=== PATIENT | male | born 1965 | race Caucasian/White ===

== ENCOUNTER 2023-12-18 11:11 | Emergency (ER) | payer BC, SELFPAY ==
[2023-12-18 11:13] VITALS: BP 180/95
--- NOTE | 2023-12-18 11:42 | ED.GENMED ---
History of Present Illness
General
Chief Complaint: Male Genito-Urinary Symptoms
Time Seen by Provider: 12/18/23 11:33
History of Present Illness
History of Present Illness:
58-year-old male with history of diabetes presents to the emergency department for evaluation of right lower quadrant pain beginning overnight. He reports having dysuria and urinary urgency during that time as well. Went to urgent care today where
he reportedly had large amount of microscopic hematuria but no leukocytes, was sent home on ciprofloxacin however as pain worsened he then decided to come to the ER. Having increasing right lower quadrant pain. No fevers but does report chills.
Prior abdominal surgical history includes bariatric surgery
Past History
Past History
ED Past Medical History: Other
ED Past Surgical History: Tonsilectomy, Urological and Other
Social History
Tobacco: Former smoker
Alcohol: Occasional
Personal:
Employment: Employed
Review of Systems
Review of Systems
Allergies reviewed?: Yes
All Other Systems: ROS reviewed and negative except as documented in HPI and ROS
Phy Exam
Physical Exam
Physical Exam:
GEN: Well appearing, NAD, WDWN
Eyes: PERRLA, EOMs intact, no scleral icterus
HENT: NCAT, oral mucosa moist
Lungs: CTAB, no wheezes, rales, rhonchi, normal chest wall excursion
Cardiac: RRR, no M/R/G, no peripheral edema. Radial pulses 2+ bilat
Abdomen: Soft, moderate right lower quadrant/right suprapubic tenderness, no rigidity or peritoneal signs
Neuro: AO x 3
MSK: No gross deformity or ecchymosis. No edema. No digital clubbing
Skin: No rashes, petechiae. Normal color, no pallor or jaundice.
Psych: Calm, cooperative, proper hygiene
Course
Orders/Labs/Results
Orders:
Orders
12/18/23 11:42
CT Abd/Pel (IV only)-DH only Urgent
Comment:
Reason For Exam: RLQ pain
Ketorolac [Toradol] 15 mg IV NOW STA
12/18/23 12:14
Complete Blood Count/With Diff Urgent
Comprehensive Metabolic Panel Urgent
Urinalysis Reflex To Culture Urgent
Date Specimen was Collected: 12/18/23
Time Specimen was Collected: 11:59
Urine Microscopic Reflex Cult Urgent
12/18/23 15:28
Oxycodone [Roxicodone] 5 mg PO NOW STA
Abnormal Lab Results
12/18/23
12:14
RBC 4.07 L 10^6/uL
(4.70-6.10)
Hgb 12.8 L g/dL
(13.0-18.0)
Hct 35.9 L %
(39.0-52.0)
MCH 31.4 H pg
(27.0-31.0)
MPV 10.6 H fL
(7.4-10.4)
Lymphocytes % 19.5 L %
(20.5-51.1)
Eosinophils % 6.8 H %
(0-6)
Glucose 107 H mg/dl
(70-99)
Ur Occult Blood Reflex 1+ A
(Negative)
Urine RBC 3-6 A /HPF
(0-2)
12/18/23 12:14
12/18/23 12:14
Vital Signs
Initial and Last Documented VS:
Initial Vital Signs
Temp Pulse Resp BP Pulse Ox
97.5 F 74 16 180/95 100
12/18/23 11:13 12/18/23 11:13 12/18/23 11:13 12/18/23 11:13 12/18/23 11:13
Last Documented Vital Signs
Temp Pulse Resp BP Pulse Ox
97.5 F 74 16 180/95 100
12/18/23 11:13 12/18/23 11:13 12/18/23 11:13 12/18/23 11:13 12/18/23 11:13
MDM/Problems Addressed
MDM/Problems Addressed:
Patient found to have a 2 mm distal right UVJ stone, no evidence of UTI and labs otherwise reassuring. Pain well-controlled the emergency department. Will treat expectantly
*Critical Care Note
Total Time (30-74mins, 75-104mins- exclusive of procedures): Not Applicable
ED Attending Note
-
Portions of this chart may have been created with voice recognition software.� Occasional wrong word or��sound alike� substitutions may have occurred due to the inherent limitations of voice recognition software.
Discharge Plan
Departure
Patient Disposition: Home (Routine Discharge)
Date of Disposition: 12/18/23
Time of Disposition: 15:25
Patient with high blood pressure during this ER visit?: No
Discharge Problem:
Calculus, ureteral
Instructions: Kidney Stone, Adult ED
Prescriptions:
New
ketorolac 10 mg tablet
10 mg PO Q8H PRN (Reason: Pain) 3 Days Qty: 12 0RF
oxycodone 5 mg tablet
5 mg PO Q8H PRN (Reason: Pain) Qty: 10 0RF
No Action
apixaban [Eliquis] 5 MG tablet
5 mg PO BID
cyanocobalamin (vitamin B-12) 1,000 MCG tablet
1,000 mcg PO DAILY
calcium carbonate [Oyster Shell Calcium 500] 500 MG tablet
500 mg PO BID
ferrous sulfate [FeroSul] 325 MG tablet
325 mg PO DAILY
cholecalciferol (vitamin D3) [Vitamin D3] 400 UNITS tablet
600 units PO DAILY
ramipril 5 MG capsule
5 mg PO DAILY
multivitamin with folic acid [Tab-A-Ben] 1 TABLET tablet
1 tab PO DAILY
levofloxacin [Levaquin] 750 MG tablet
750 mg PO DAILY Qty: 11 0RF
Rx Instructions:
Take first dose evening 01/05/18
Referrals:
Mena Tejeda PA-C [Family Provider] -
Interventions
Interventions:
*Risk Screen - Suicide Last Done: 12/18/23 11:13
*General Assessment Last Done: 12/18/23 12:00
*Neglect/Abuse Screening Last Done: 12/18/23 11:13
ED- Fall Risk Assessment Last Done: 12/18/23 12:00
*ED COVID-19 Vaccine History Last Done: 12/18/23 12:00
ED-Male Genitourinary Assessment Last Done: 12/18/23 12:00
Discharge Date and Time
Print Language: URUGUAYAN
[2023-12-18] MEDS: TORADOL 15 MG IV (12:10)
[2023-12-18 12:26] LABS: % Basophils 0.6 % (0-2); % Eosinophils 6.8 % (0-6); % Immature Granulocytes 0.3 % (0-0.5); % Lymphocytes 19.5 % (20.5-51.1); % Monocytes 8.5 % (1.7-9.3); % Neutrophils 64.3 % (42.2-75.2); Absolute Eosinophils 0.5 10^3/uL (0-0.7); Absolute Lymphocytes 1.4 10^3/uL (1.2-3.4); Absolute Monocytes 0.6 10^3/uL (0.1-0.6); Absolute Neutrophils 4.5 10^3/uL (1.4-6.5); Hematocrit 35.9 % (39.0-52.0); Hemoglobin 12.8 g/dL (13.0-18.0); Mean Corp Hgb Conc. 35.7 g/dL (33.0-37.0); Mean Corpuscular Hgb 31.4 pg (27.0-31.0); Mean Corpuscular Volume 88.2 fL (80.0-94.0); Mean Platelet Volume 10.6 fL (7.4-10.4); Nucleated Red Blood Cells % 0 % (-); Platelet Count 202 10^3/uL (130-400); Red Blood Cell Count 4.07 10^6/uL (4.70-6.10); Red Cell Dist. Width 12.4 % (11.5-14.5); White Blood Cell Count 7.1 10^3/uL (4.8-10.8)
[2023-12-18 12:27] LABS: Urine Albumin Negative (Neg - Trace); Urine Bilirubin Negative (Negative); Urine Character Clear (Clear); Urine Color Yellow; Urine Glucose Negative (Negative); Urine Ketone Negative (Negative); Urine Leukocyte Negative (Negative); Urine Nitrite Negative (Negative); Urine Occult Blood 1+ (Negative); Urine Urobilinogen Negative (Neg - 1+)
[2023-12-18 12:40] LABS: ALT (SGPT) 30 U/L (0-50); AST (SGOT) 29 U/L (17-59); Albumin 4.2 g/dl (3.5-5.0); Alkaline Phosphatase 71 U/L (38-126); Blood Urea Nitrogen 20 mg/dl (9-20); Calcium 9.4 mg/dl (8.4-10.2); Carbon Dioxide 24 mmol/L (22-30); Chloride 106 mmol/L (98-107); Glucose 107 mg/dl (70-99); Potassium 4.5 mmol/L (3.5-5.1); Sodium 139 mmol/L (135-145); Total Bilirubin 0.4 mg/dl (0.2-1.3); Total Protein 7.1 g/dl (6.3-8.2); eGFR > 60.00
[2023-12-18 13:02] LABS: Urine Squamous Cell 0-2 /LPF (Few); Urine White Cell 0-2 /HPF (0-5)
[2023-12-18] MEDS: ROXICODONE 5 MG PO (15:42)
== END 2023-12-18 15:42 | disposition home or self-care (01) ==
LOC: EMR 11:11
PROVIDERS: Physician Assistant; EMERGENCY PHYSICIAN Emergency Medicine; FAMILY PHYSICIAN Physician Assistant Medical
DX: N20.1 Calculus of ureter (principal); E11.9 Type 2 diabetes mellitus without complications; Z87.891 Personal history of nicotine dependence
CPT/HCPCS: 99285; 96374; 74177; 80053; 81003; 81015; 85025; Q9967

== ENCOUNTER → 2024-04-30 10:34 | Outpatient (REF) | payer BC, SELFPAY | LOC: HWRAD 10:34 | PROVIDERS: ATTENDING PHYSICIAN Physician Assistant Medical | DX: M54.50 Low back pain, unspecified (principal) | CPT/HCPCS: 72110 ==

== ENCOUNTER → 2024-06-11 18:41 | Outpatient (REF) | payer BC, SELFPAY | LOC: RAD 18:41 | PROVIDERS: ATTENDING PHYSICIAN Physician Assistant Medical | DX: Z09 Encounter for follow-up examination after completed treatment for conditions other than malignant neoplasm (principal); L08.9 Local infection of the skin and subcutaneous tissue, unspecified; Z86.718 Personal history of other venous thrombosis and embolism; Z86.711 Personal history of pulmonary embolism; I10 Essential (primary) hypertension; Z98.84 Bariatric surgery status; J30.9 Allergic rhinitis, unspecified; E11.9 Type 2 diabetes mellitus without complications; E78.2 Mixed hyperlipidemia; H35.30 Unspecified macular degeneration; H40.9 Unspecified glaucoma | CPT/HCPCS: 73630 ==

== ENCOUNTER → 2024-07-12 17:34 | Outpatient (REF) | payer BC, SELFPAY | LOC: RAD 17:34 | PROVIDERS: ATTENDING PHYSICIAN Physician Assistant Medical | DX: M25.472 Effusion, left ankle (principal) | CPT/HCPCS: 93971 ==

== ENCOUNTER 2024-12-07 11:10 | Emergency (ER) | payer BC, SELFPAY ==
[2024-12-07 11:17] VITALS: BP 154/103
[2024-12-07 11:36] LABS: Hematocrit 40.9 % (39.0-52.0); Hemoglobin 14.0 g/dL (13.0-18.0); Mean Corp Hgb Conc. 34.2 g/dL (33.0-37.0); Mean Corpuscular Volume 91.5 fL (80.0-94.0); Nucleated Red Blood Cells % 0 % (-); Platelet Count 252 10^3/uL (130-400); Red Cell Dist. Width 11.9 % (11.5-14.5)
[2024-12-07 11:41] VITALS: BMI 27.8
[2024-12-07 11:43] VITALS: BP 144/95
--- NOTE | 2024-12-07 11:53 | ED.GENMED ---
History of Present Illness
General
Chief Complaint: Heart Rate Problem
Time Seen by Provider: 12/07/24 11:53
History of Present Illness
History of Present Illness:
FOCUSED PAST MEDICAL HISTORY
- Has had PE, on Eliquis, history of gastric bypass, diabetes, high blood pressure, hyperlipidemia
REVIEW OF OLD RECORDS
- The patient was seen here in 2018 due to E. coli bacteremia, UTI/sepsis
Note:
CHIEF COMPLAINT(S)
Palpitations and is found to be in supraventricular tachycardia (SVT).
HISTORY OF PRESENT ILLNESS
The patient is a 59-year-old male who presented with concerns related to a potential supraventricular tachycardia (SVT) episode. Earlier today, during a online facilitator follow-up, the patient had his blood pressure taken and was noted to have an
elevated reading of 150/100 mmHg along with a pulse rate of approximately 120 beats per minute. He was instructed to follow up with his primary care physician for an electrocardiogram (EKG). The EKG, reviewed by his primary care physician, suggested
a rhythm consistent with SVT, prompting his referral to the emergency department for further evaluation. At present, the patient is in normal sinus rhythm and denies any current symptoms, including feeling unwell during the episode earlier in the
day. He does not have a prior history of SVT or atrial fibrillation, though he reports having a gallop rhythm due to a heart infection from septicemia several years ago.
EXTERNAL RECORDS REVIEWED
The patient mentioned that his primary care physician reviewed his EKG, which led to the current referral. It is unclear if these records have been electronically transferred to the current facility at this time.
PAST MEDICAL AND SURIGICAL HISTORY
History of septicemia with a heart infection in the past, resulting in a gallop rhythm.
REVIEW OF SYSTEMS
- Cardiovascular: Palpitations noted earlier in the day. Currently in normal sinus rhythm.
- Neurological: No symptoms reported.
PHYSICAL EXAM
General: Alert, no acute distress.
Skin: Warm, dry.
Head: Normocephalic, atraumatic.
Neck: Supple, trachea midline.
Eyes, Ears, Nose, Mouth, and Throat: Oral mucosa moist.
Cardiovascular: Normal peripheral perfusion, No edema.
Respiratory: Respirations are non-labored.
Gastrointestinal: Abdomen nondistended.
Back: Normal range of motion, Normal alignment.
Musculoskeletal: Normal range of motion, normal strength.
Neurological: Alert and oriented to person, place, time, and situation, No focal neurological deficit observed.
Psychiatric: Cooperative, appropriate mood & affect.
PLAN
Await results of the blood work for further evaluation. Monitor cardiac rhythm and symptoms. Consider cardiology referral if SVT episodes persist or if new symptoms develop.
DIFFERENTIAL DIAGNOSIS
The Differential Diagnosis includes, in no particular order and is not limited to:
1. Supraventricular tachycardia (SVT)
2. Atrial fibrillation
3. Anxiety-induced palpitations
4. Sinus tachycardia
5. Hypertension-related manifestations
6. Thyroid dysfunction
7. Electrolyte imbalances
8. Ischemic heart disease
9. Structural heart abnormalities
10. Medication-induced tachycardia
EKG
- Suggestive of SVT with a ventricular to 119
- I initially evaluated patient on the monitor, he is sinus in the 80s, not in SVT, TSH normal
LABS
- Magnesium and potassium are normal, CBC unremarkable, normal creatinine
UPDATE
-SUMMARY OF ENCOUNTER
The patient is a 59-year-old male who presented to the emergency department following concerns for a potential episode of supraventricular tachycardia (SVT) noted earlier in the day. During monitoring in the ED, the patients heart rhythm was stable,
with readings showing normal sinus rhythm and rates in the 80s. Laboratory workup indicated normal potassium and magnesium levels, and the thyroid test results are pending, assumed to be normal. The type of SVT observed earlier was not typical, with
lower heart rates around 119 rather than the higher rates usually associated with SVT.
PLAN
Awaiting final thyroid test results. If normal, the patient will be discharged with follow-up instructions for cardiology consultation.
INDEPENDENT REVIEW OF LABS AND INTERPRETATION OF TESTS
My independent review of electrolytes, including potassium and magnesium, indicates they were within normal limits. Thyroid function tests are still pending, likely to be within normal range.
PATIENT EDUCATION AND COUNSELING
The patient was informed that SVT is not associated with heart attacks and is different from atrial fibrillation (AF), which requires blood thinners. Since the patient is asymptomatic, a beta-mela or heart rate control medication was not deemed
necessary at this time. He was advised on the benign nature of SVT, its potential symptoms, and that it often resolves spontaneously.
FOLLOW-UP INSTRUCTIONS
The patient is advised to follow up with a member of technical staff to explore further management options and consider preventive strategies for potential future SVT episodes.
MEDICAL DECISION MAKING
-Complexity of Data Reviewed: Chronic conditions affecting care [History of septicemia with a heart infection, gallop rhythm]. Differential diagnosis included supraventricular tachycardia (SVT), atrial fibrillation, anxiety-induced palpitations,
sinus tachycardia, hypertension-related manifestations, thyroid dysfunction, electrolyte imbalances, ischemic heart disease, structural heart abnormalities, medication-induced tachycardia.
-Data:
Category 1
The following testing was considered, but ultimately not selected after discussion with patient/family: A comprehensive cardiac evaluation including possible Holter monitoring was considered but not ordered at this time due to the patients stable
condition in the ED.
Category 2
My independent interpretation of the EKG suggests an atypical presentation of SVT with a lower rate than typical.
Category 3
Discussion of management with other physician or healthcare provider included advice to the patient on continuing existing medication regimens and potential future cardiology assessment.
DIAGNOSIS
Supraventricular tachycardia (SVT) - ICD-10 Code: I47.1
Past History
Past History
ED Past Medical History: Other
ED Past Surgical History: Tonsilectomy, Urological and Other
Social History
Tobacco: Former smoker
Alcohol: Occasional
Personal:
Employment: Employed
Phy Exam
Physical Exam
Physical Exam:
See HPI
Course
Orders/Labs/Results
Orders:
Orders
12/07/24 11:14
EKG [Electrocardiogram (*1)] Urgent
Reason for Study: Palpitations
12/07/24 11:15
EKG- Treatment ONCE
12/07/24 11:27
Complete Blood Count/With Diff Urgent
Comprehensive Metabolic Panel Urgent
Magnesium Urgent
Comment: ADD ON
TSH Reflex To Free T4 Urgent
Comment: ADD ON
12/07/24 11:53
Add On- LAB Urgent
Tests Added?: tsh reflex fT4, Mg
Abnormal Lab Results
12/07/24
11:27
RBC 4.47 L 10^6/uL
(4.70-6.10)
MCH 31.3 H pg
(27.0-31.0)
Chloride 108 H mmol/L
(98-107)
Glucose 108 H mg/dl
(70-99)
12/07/24 11:27
12/07/24 11:27
Vital Signs
Pulse: 86
Initial and Last Documented VS:
Initial Vital Signs
Temp Pulse Resp BP Pulse Ox
36.4 C 129 19 154/103 100
12/07/24 11:17 12/07/24 11:17 12/07/24 11:17 12/07/24 11:17 12/07/24 11:17
Last Documented Vital Signs
Temp Pulse Resp BP Pulse Ox
36.3 C 77 10 130/81 98
12/07/24 11:44 12/07/24 13:30 12/07/24 13:30 12/07/24 13:00 12/07/24 13:30
*Pulse Oximetry
SaO2: 100
Oxygen Mode of Delivery: Room air
Patient hypoxic: no
*Critical Care Note
Total Time (30-74mins, 75-104mins- exclusive of procedures): Not Applicable
ED Attending Note
-
Portions of this chart may have been created with voice recognition software.� Occasional wrong word or��sound alike� substitutions may have occurred due to the inherent limitations of voice recognition software.
Discharge Plan
Departure
Prescriptions:
No Action
apixaban [Eliquis] 5 MG tablet
5 mg PO BID
cyanocobalamin (vitamin B-12) 1,000 MCG tablet
1,000 mcg PO DAILY
calcium carbonate [Oyster Shell Calcium 500] 500 MG tablet
500 mg PO BID
ferrous sulfate [FeroSul] 325 MG tablet
325 mg PO DAILY
cholecalciferol (vitamin D3) [Vitamin D3] 400 UNITS tablet
600 units PO DAILY
ramipril 5 MG capsule
5 mg PO DAILY
multivitamin with folic acid [Tab-A-Ben] 1 TABLET tablet
1 tab PO DAILY
levofloxacin [Levaquin] 750 MG tablet
750 mg PO DAILY Qty: 11 0RF
Rx Instructions:
Take first dose evening 01/05/18
ketorolac 10 mg tablet
10 mg PO Q8H PRN (Reason: Pain) 3 Days Qty: 12 0RF
oxycodone 5 mg tablet
5 mg PO Q8H PRN (Reason: Pain) Qty: 10 0RF
Referrals:
Mena Tejeda CRNP [Family Provider, General]
Interventions
Interventions:
*Risk Screen - Suicide Last Done: 12/07/24 11:19
*General Assessment Last Done: 12/07/24 11:44
*Neglect/Abuse Screening Last Done: 12/07/24 11:19
*ED- Fall Risk Assessment Last Done: 12/07/24 11:44
*ED COVID-19 Vaccine History Last Done: 12/07/24 11:41
*ED Influenza Vaccine History Last Done: 12/07/24 11:41
ED- Cardiac Assessment Last Done: 12/07/24 11:45
ED- Pulmonary Assessment Last Done: 12/07/24 11:45
Discharge Date and Time
Print Language: DUTCH
[2024-12-07 11:57] LABS: ALT (SGPT) 33 U/L (0-50); AST (SGOT) 24 U/L (17-59); Albumin 4.4 g/dl (3.5-5.0); Alkaline Phosphatase 58 U/L (38-126); Blood Urea Nitrogen 16 mg/dl (9-20); Calcium 9.5 mg/dl (8.4-10.2); Carbon Dioxide 28 mmol/L (22-30); Chloride 108 mmol/L (98-107); Estimated Creatinine Clearance 108 ml/min; Glucose 108 mg/dl (70-99); Potassium 4.6 mmol/L (3.5-5.1); Sodium 142 mmol/L (135-145); Total Protein 7.6 g/dl (6.3-8.2); eGFR > 60.00
[2024-12-07 12:00] VITALS: BP 149/87
[2024-12-07 12:18] LABS: Magnesium 2.0 mg/dl (1.6-2.3)
[2024-12-07 13:00] VITALS: BP 130/81
[2024-12-07 14:00] VITALS: BP 125/73
== END 2024-12-07 14:22 | disposition home or self-care (01) ==
LOC: EMR 11:10
PROVIDERS: Student in an Organized Health Care Education/Training Program; EMERGENCY PHYSICIAN Emergency Medicine; FAMILY PHYSICIAN Nurse Practitioner Adult Health
DX: I47.10 Supraventricular tachycardia, unspecified (principal); E11.9 Type 2 diabetes mellitus without complications; E78.5 Hyperlipidemia, unspecified; Z86.711 Personal history of pulmonary embolism; Z79.01 Long term (current) use of anticoagulants; Z98.84 Bariatric surgery status; Z87.891 Personal history of nicotine dependence
CPT/HCPCS: 99284; 80053; 83735; 84443; 85025; 93005

== ENCOUNTER → 2025-01-28 08:22 | Outpatient (REF) | payer BC, SELFPAY | LOC: HWRCS 08:22 | PROVIDERS: ATTENDING PHYSICIAN Internal Medicine Cardiovascular Disease; FAMILY PHYSICIAN Physician Assistant Medical | DX: I47.10 Supraventricular tachycardia, unspecified (principal); I10 Essential (primary) hypertension; Z86.39 Personal history of other endocrine, nutritional and metabolic disease | CPT/HCPCS: 93306 ==